=== PATIENT | male | born 1995 | race Caucasian/White ===

== ENCOUNTER 2020-08-07 22:05 | Emergency (ER) | payer OTHER ==
[~2020-08-07] VITALS: Ht 170.2 cm; Wt 81.6 kg
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
[2020-08-07] MEDS ORDERED: HYDROCODONE/APAP 10/325MG TABLET PO ONE (22:30)
[2020-08-07] MEDS ORDERED: ONDANSETRON 4 MG TAB.RAPDIS SL ONE (22:30)
[2020-08-07] MEDS ORDERED: HYDROCODONE/APAP 10/325MG TABLET ONE (22:35)
[2020-08-07] MEDS ORDERED: ONDANSETRON 4 MG TAB.RAPDIS ONE (22:35)
[2020-08-07] MEDS ORDERED: ETOMIDATE 2 MG/ML VIAL IV ONE (23:00)
--- NOTE | 2020-08-07 23:10 | NUR ---
CONSENT OBTAINED FOR CLOSED REDUCTION OF R ANTERIOR SHOULDER DISLOCATION W/ MODERATE SEDATION
[2020-08-07] MEDS ORDERED: ETOMIDATE 2 MG/ML VIAL ONE (23:13)
--- NOTE | 2020-08-07 23:21 | NUR ---
ETOMIDATE 5 MG IVP GIVEN PER VERBAL ORDER
--- NOTE | 2020-08-07 23:25 | NUR ---
ETOMIDATE 5 MG IVP GIVEN PER VERBAL ORDER
--- NOTE | 2020-08-07 23:35 | NUR ---
PT AAOX4, VSS, RESPIRATIONS EVEN AND UNLABORED ON RA W/ NAD NOTED. PT CONNECTED TO THE DISTILLERY SUPERVISOR AND POX
--- NOTE | 2020-08-08 01:07 | NUR ---
Patient medically cleared for booking. Written and verbal after care instructions given. Patient verbalizes understanding of instruction.
[2020-08-08 01:14] VITALS: BP 141/83
== END 2020-08-08 01:15 ==
LOC: ER 22:05
DX: S43.084A Other dislocation of right shoulder joint, initial encounter (principal); Y08.89XA Assault by other specified means, initial encounter; Y93.89 Activity, other specified; Y92.89 Other specified places as the place of occurrence of the external cause; Y99.8 Other external cause status
CPT/HCPCS: 23650; 73020; 73030; 99152; 99291; J3490; J7030; Q0162; G0500